=== PATIENT | female | born 1960 | race Caucasian/White ===

== ENCOUNTER 2017-06-12 10:13 | Outpatient (CLI) | payer OTHER, SELFPAY | END 2017-06-12 10:14 | disposition home or self-care (01) | LOC: BICRAD 10:13 | PROVIDERS: ATTEND Internal Medicine | DX: M47.26 Other spondylosis with radiculopathy, lumbar region (principal) | CPT/HCPCS: 72100 ==

== ENCOUNTER 2017-12-29 17:48 | Emergency (ER) | payer OTHER, SELFPAY ==
[2017-12-29] MEDS ORDERED: Lidocaine 1% PF 5 ML VIAL ONE (18:51)
[2017-12-29] MEDS ORDERED: Adacel (T-DAP) 0.5 ML VIAL ONE (19:31)
[2017-12-29] MEDS ORDERED: Bacitracin Zinc 1 Packet ONE (19:31)
== END 2017-12-29 19:47 | disposition home or self-care (01) ==
LOC: ERS 17:48
DX: S51.811A Laceration without foreign body of right forearm, initial encounter (principal); J44.9 Chronic obstructive pulmonary disease, unspecified; F17.210 Nicotine dependence, cigarettes, uncomplicated; Z71.6 Tobacco abuse counseling; W25.XXXA Contact with sharp glass, initial encounter
CPT/HCPCS: 12002; 90471; 90715; J2001

== ENCOUNTER 2018-09-23 15:07 | Emergency (ER) | payer SELFPAY ==
[2018-09-23 16:04] LABS: Hemoglobin 13.5 g/dL (12.0-16.0); Mean Corpuscular HGB CONC 33.8 g/dL (32.0-36.0); Mean Corpuscular Hemoglobin 32.7 pg (27.0-31.0); Mean Corpuscular Volume 96.9 fL (78.0-98.0); Platelet Count 135 thou/uL (130-400); RBC Distribution Width 11.9 % (11.5-14.5); Red Blood Cell (RBC) Count 4.11 mill/uL (4.20-5.40); White Blood Cell (WBC) Count 2.9 thou/uL (4.8-10.8)
--- NOTE | 2018-09-23 16:08 | RAD ---
CHEST ONE VIEW: 09/23/18 HISTORY: Chest pain. FINDINGS: Heart size is normal. The lungs are clear. No confluent pneumonia, overt edema, or pleural effusion. IMPRESSION: No acute intrathoracic disease. Atherosclerosis of the aorta. POS: OFF
[2018-09-23 16:18] LABS: ALT (SGPT) 10 U/L (8-55); AST (SGOT) 17 U/L (5-34); Albumin 3.9 g/dL (3.5-5.0); Alkaline Phosphatase 65 U/L (40-150); Anion Gap 12 mmol/L (10-20); BUN (Urea Nitrogen) 9 mg/dL (9.8-20.1); Bilirubin, Total 0.2 mg/dL (0.2-1.2); CK (CPK) 23 U/L (29-168); Calc. Creatinine Clearance 0 mL/min (70-130); Carbon Dioxide 22 mmol/L (22-29); Chloride 105 mmol/L (98-107); Estimated GFR-MDRD 60; Globulin 3.1 g/dL (2.4-3.5); Glucose 93 mg/dL (70-105); Magnesium 2.1 mg/dL (1.6-2.6); Potassium 4.2 mmol/L (3.5-5.1); Sodium 135 mmol/L (136-145)
[2018-09-23 16:30] LABS: Band 8 % (5-11); Lymphocytes 37 % (21-51); MDiff Complete? YES; Monocytes 6 % (0-10); Neutrophil 48 % (42-75); Platelet Morphology Comment Appears Adequate
[2018-09-23] MEDS ORDERED: HYDROcodone/Acetaminophen 5/325 mg Tablet ONE (17:50)
[2018-09-23 18:25] LABS: Troponin I Less than 0.010 ng/mL (< 0.028)
--- NOTE | 2018-09-25 15:14 | EKG ---
Test Reason : Blood Pressure : / mmHG Vent. Rate : 086 BPM Atrial Rate : 086 BPM P-R Int : 124 ms QRS Dur : 086 ms QT Int : 360 ms P-R-T Axes : 070 001 059 degrees QTc Int : 430 ms Normal sinus rhythm Biatrial enlargement Septal infarct , age undetermined Abnormal ECG Confirmed by MARCELLA BADILLO ([id number]), deputy editor in chief JORY RAVI ([id number]) on 09/25/2018 3:13:38 PM Referred By: Confirmed By:MARCELLA BADILLO
== END 2018-09-23 18:53 | disposition home or self-care (01) ==
LOC: ERS 15:07
DX: R07.2 Precordial pain (principal); I10 Essential (primary) hypertension; J44.9 Chronic obstructive pulmonary disease, unspecified; F17.210 Nicotine dependence, cigarettes, uncomplicated; Z79.899 Other long term (current) drug therapy
CPT/HCPCS: 36415; 71045; 80053; 82550; 83735; 83880; 84484; 85025; 93005; 94760; 96361; 96374

== ENCOUNTER 2021-09-02 19:16 | Emergency (ER) | payer BC, SELFPAY ==
[2021-09-02 19:42] LABS: #Eosinphils 0.2 thou/uL (0.0-0.7); #Monocytes 1.6 thou/uL (0.11-0.59); #Neutrophils 8.9 thou/uL (1.40-6.50); %Eosinophils 1.5 % (0.0-10.0); %Lymphocytes 15.5 % (21.0-51.0); %Monocytes 12.4 % (0.0-10.0); %Neutrophils 70.6 % (42.0-75.0); Hemoglobin 13.4 g/dL (12.0-16.0); Mean Corpuscular HGB CONC 33.5 g/dL (32.0-36.0); Mean Corpuscular Hemoglobin 32.6 pg (27.0-31.0); Mean Corpuscular Volume 97.3 fL (78.0-98.0); Mean Platelet Volume 8.9 fL (7.4-10.4); Platelet Count 196 thou/uL (130-400); RBC Distribution Width 11.8 % (11.5-14.5); Red Blood Cell (RBC) Count 4.12 mill/uL (4.20-5.40); White Blood Cell (WBC) Count 12.6 thou/uL (4.8-10.8)
[2021-09-02 20:02] LABS: ALT (SGPT) 9 U/L (8-55); AST (SGOT) 14 U/L (5-34); Albumin 3.9 g/dL (3.5-5.0); Alkaline Phosphatase 74 U/L (40-110); Anion Gap 15 mmol/L (10-20); BUN (Urea Nitrogen) 18 mg/dL (9.8-20.1); Bilirubin, Total 0.6 mg/dL (0.2-1.2); Calc. Creatinine Clearance 0 mL/min (70-130); Calcium 9.5 mg/dL (7.8-10.44); Carbon Dioxide 20 mmol/L (22-29); Chloride 102 mmol/L (98-107); Globulin 3.6 g/dL (2.4-3.5); Glucose 110 mg/dL (70-105); Lipase 15 U/L (8-78); Potassium 4.2 mmol/L (3.5-5.1); Protein, Total 7.5 g/dL (6.0-8.3); Sodium 133 mmol/L (136-145)
[2021-09-02] MEDS ORDERED: Acetaminophen 500 MG TAB ONE (20:33)
[2021-09-02 20:35] LABS: Bilirubin Negative (Negative); Blood, Urine Trace (Negative); Clarity Turbid (Clear); Glucose, Urine (Dipstick) Normal (Negative); Ketone, Urine Negative (Negative); Leukocyte 500 Leu/uL (Negative); Nitrite Negative (Negative); Protein, Urine (Dipstick) 70 mg/dL (Neg-Trace); Specific Gravity, Urine 1.016 (1.002-1.036); Squamous Epithelial 0-3 HPF (0-3); Urobilinogen Normal mg/dL (Less than 2); WBC/HPF Greater than 50 HPF (0-3); pH, Urine 5.5 (5.0-9.0)
[2021-09-02 20:41] LABS: Bacteria/HPF 1+ HPF (None Seen)
[2021-09-02] MEDS ORDERED: cefTRIAXone\\ROCEPHIN 1 GM VIAL ONE (22:00)
== END 2021-09-02 22:32 | disposition home or self-care (01) ==
LOC: ERS 19:16
DX: I95.9 Hypotension, unspecified (principal); N39.0 Urinary tract infection, site not specified; I10 Essential (primary) hypertension; J44.9 Chronic obstructive pulmonary disease, unspecified; F17.210 Nicotine dependence, cigarettes, uncomplicated
CPT/HCPCS: 36415; 71045; 80053; 81003; 81015; 83605; 83690; 84484; 85025; 87804; 93005; 96361; 96365; J0696

== ENCOUNTER 2022-06-04 09:08 | Outpatient (CLI) | payer BC ==
[2022-06-04] MEDS ORDERED: Magnevist 469MG/ML 20 ML VIAL ONE (09:16)
== END 2022-06-04 09:09 | disposition home or self-care (01) ==
LOC: MRI 09:08
PROVIDERS: ATTEND Neurological Surgery
DX: G93.0 Cerebral cysts (principal)
CPT/HCPCS: 70553; A9579

== ENCOUNTER 2023-07-03 07:57 | Outpatient (CLI) | payer BC | END 2023-07-03 07:58 | disposition home or self-care (01) | LOC: MRI 07:57 | PROVIDERS: ATTEND Neurological Surgery | DX: G93.0 Cerebral cysts (principal); D49.6 Neoplasm of unspecified behavior of brain | CPT/HCPCS: 70553; 82565 ==

== ENCOUNTER 2025-01-24 12:31 | Outpatient (CLI) | payer BC | END 2025-01-24 12:32 | disposition home or self-care (01) | LOC: BICMAMMO 12:31 | PROVIDERS: ATTEND Family Medicine | DX: Z12.31 Encounter for screening mammogram for malignant neoplasm of breast (principal) | CPT/HCPCS: 77063; 77067 ==